=== PATIENT | male | born 2000 | race Caucasian/White ===

== ENCOUNTER 2025-05-06 20:42 | Emergency (ER) | payer BC, SELFPAY ==
[2025-05-06 20:50] VITALS: BP 123/80
[2025-05-06 21:30] VITALS: BP 111/65
[2025-05-06 21:32] VITALS: BMI 25.9
[2025-05-06 22:00] VITALS: BP 121/81
[2025-05-06 22:21] LABS: % Basophils 0.4 % (0-2); % Eosinophils 0.9 % (0-6); % Immature Granulocytes 0.3 % (0-0.5); % Lymphocytes 27.4 % (20.5-51.1); % Monocytes 6.4 % (1.7-9.3); % Neutrophils 64.6 % (42.2-75.2); Absolute Eosinophils 0.1 10^3/uL (0-0.7); Absolute Lymphocytes 1.9 10^3/uL (1.2-3.4); Absolute Monocytes 0.4 10^3/uL (0.1-0.6); Absolute Neutrophils 4.4 10^3/uL (1.4-6.5); Hematocrit 44.6 % (39.0-52.0); Hemoglobin 15.8 g/dL (13.0-18.0); Mean Corp Hgb Conc. 35.4 g/dL (33.0-37.0); Mean Corpuscular Hgb 31.1 pg (27.0-31.0); Mean Corpuscular Volume 87.8 fL (80.0-94.0); Mean Platelet Volume 10.3 fL (7.4-10.4); Nucleated Red Blood Cells % 0 % (-); Platelet Count 189 10^3/uL (130-400); Red Blood Cell Count 5.08 10^6/uL (4.70-6.10); Red Cell Dist. Width 11.1 % (11.5-14.5); White Blood Cell Count 6.9 10^3/uL (4.8-10.8)
[2025-05-06 22:35] LABS: ALT (SGPT) 28 U/L (0-50); AST (SGOT) 20 U/L (17-59); Albumin 4.8 g/dl (3.5-5.0); Alkaline Phosphatase 63 U/L (38-126); Blood Urea Nitrogen 17 mg/dl (9-20); Calcium 9.4 mg/dl (8.4-10.2); Carbon Dioxide 26 mmol/L (22-30); Chloride 107 mmol/L (98-107); Estimated Creatinine Clearance > 125 ml/min; Glucose 122 mg/dl (70-99); Potassium 4.3 mmol/L (3.5-5.1); Sodium 143 mmol/L (135-145); Total Bilirubin 0.7 mg/dl (0.2-1.3); Total Protein 7.2 g/dl (6.3-8.2); eGFR > 60.00
[2025-05-06 22:42] LABS: Troponin I < 0.012 ng/ml
--- NOTE | 2025-05-06 22:54 | ED.GENMED ---
History of Present Illness
General
Chief Complaint: Chest Pain
Source: patient
Exam Limitations: none
Time Seen by Provider: 05/06/25 21:46
Nursing documentation reviewed up to this point in time: agreed with
History of Present Illness
History of Present Illness:
25-year-old male with no reported chronic medical issues presents to the ER for evaluation of chest tightness. Patient reports that for the past 2 or 3 days he has noticed tightness in the left side of his chest. He describes 'like a sore muscle'
that feels better when he massages it. He denies any associated shortness of breath, palpitations, dizziness, nausea/vomiting. No swelling or pain in the legs. No exertional component to his symptoms. He does note that he recently started doing
some push-ups shortly prior to onset. He initially went to urgent care and there he was told that his EKG was abnormal and he should be evaluated in the ER. He also had a chest x-ray that was reportedly unremarkable.
Review of Systems
Review of Systems
All Other Systems: ROS reviewed and negative except as documented in HPI and ROS
Constitutional: Denies fever
EENT: Denies sore throat or runny nose
Respiratory: Denies cough or trouble breathing
Cardiac: Reports chest pain; Denies palpitations
ABD/GI: Denies abdominal pain, nausea or vomiting
: Denies flank pain
Musculoskeletal: Denies edema, neck pain or back pain
Neurological: Denies dizzy or headache
Phy Exam
Physical Exam
Physical Exam:
General: Awake, alert, oriented x3; no acute distress
Head: Normocephalic, atraumatic
Eyes: Conjunctiva normal, sclera anicteric
Throat: Airway intact, handling secretions
Neck: Trachea midline, no JVD
Lungs: Clear to auscultation bilaterally, no wheezing, rales, rhonchi
Heart: Regular rate and rhythm, no murmurs, gallops, or rubs; mild tenderness along the left pectoral muscle but no swelling or skin changes
Abd: Soft, non distended, nontender
Neuro: No gross deficits
Extremities: No edema in extremities, equal pulses in all extremities
Scores
Heart Failure Risk
Heart Failure Risk Score: Not Applicable
Heart Score for Chest Pain Patients
STEMI patient?: No
History: Slightly or Non-Suspicious
ECG: Normal
Age: </= 45 years
Risk Factors: No Risk Factors
Troponin: </= Normal Limit
Heart Score for Chest Pain Patients: 0
Heart Score Risk: 2.5% MACE over next 6 weeks
PERC Rule Criteria
Age <50 years: Yes
HR <100 bpm: Yes
Room air oxygen sat >94%: Yes
History of DVT or PE: No
Recent trauma or surgery: No
Hemoptysis: No
Exogenous estrogen: No
Clinical signs suggestive of DVT: No
: No
Considered low risk for PE: Yes
PERC Score: 0
PE can be excluded by PERC: Yes
Withdrawal Assessment of Alcohol
Withdrawal Assessment Completed?: Not applicable
Course
Orders/Labs/Results
Orders:
Orders
05/06/25 20:45
EKG [Electrocardiogram (*1)] Urgent
Reason for Study: Chest Pain
EKG- Treatment ONCE
05/06/25 22:00
Comprehensive Metabolic Panel Urgent
Troponin I Urgent
05/06/25 22:11
Complete Blood Count/With Diff Urgent
Abnormal Lab Results
05/06/25 05/06/25
22:00 22:11
MCH 31.1 H pg
(27.0-31.0)
RDW 11.1 L %
(11.5-14.5)
Glucose 122 H mg/dl
(70-99)
05/06/25 22:11
05/06/25 22:00
Vital Signs
Initial and Last Documented VS:
Initial Vital Signs
Temp Pulse Resp BP Pulse Ox
37.0 C 91 15 123/80 100
05/06/25 20:50 05/06/25 20:50 05/06/25 20:50 05/06/25 20:50 05/06/25 20:50
Last Documented Vital Signs
Temp Pulse Resp BP Pulse Ox
37.0 C 78 9 121/81 97
05/06/25 20:50 05/06/25 22:45 05/06/25 22:45 05/06/25 22:00 05/06/25 22:45
MDM/Problems Addressed
Differential Diagnosis Includes:
Costochondritis, pectoral strain, ACS/angina considered very unlikely, very low clinical suspicion for PE and patient is PERC negative�no indication for further testing for this diagnosis
MDM/Problems Addressed:
25-year-old male presents for evaluation of chest wall soreness that improves with massage that started after doing some push-ups recently. He went to urgent care and they did an EKG that was reportedly abnormal and he was told to go to the ER for
evaluation. His EKG here shows some nonspecific flattening of the T waves but no ST changes. His symptoms seem quite clearly to be chest wall pain likely from pectoral strain. Nevertheless given abnormal EKG will check cardiac enzymes in an
abundance of caution. Patient PERC negative no indication for testing for PE�very low clinical suspicion for this diagnosis.
Labs reviewed and are unremarkable, troponin is undetectable. Reviewed chest x-ray from urgent care which showed no acute disease on my independent review. Stable for discharge advised to follow-up with primary care physician as an outpatient.
Advised to rest and trial NSAIDs as I suspect etiology of his discomfort is chest wall strain. Spoke about return precautions and all questions answered.
*Critical Care Note
Total Time (30-74mins, 75-104mins- exclusive of procedures): Not Applicable
ED Attending Note
-
Portions of this chart may have been created with voice recognition software.� Occasional wrong word or��sound alike� substitutions may have occurred due to the inherent limitations of voice recognition software.
Discharge Plan
Departure
Patient Disposition: Home (Routine Discharge)
Date of Disposition: 05/06/25
Time of Disposition: 22:50
Patient with high blood pressure during this ER visit?: No
Discharge Problem:
Chest pain, Abnormal EKG
Instructions: Chest Pain PCP Follow Up
Referrals:
Lawrence Mae MD [Family Provider, [facility]] - Follow up in 1 week
Activity Restrictions/Additional Instructions:
Thank you for visiting the Emergency Department at [facility].
1. Please schedule a follow up appointment as directed. Call first thing tomorrow morning to make an appointment.
2. If indicated, please take your medications as instructed and indicated on discharge paperwork.
3. If any of your symptoms do not improve, or persist, or become more severe within 6-12 hours, please return to the emergency department for further care.
4. Please return to the emergency department if you develop a headache, neck pain/stiffness, fever greater than 100.4F, chest pain, shortness of breath, persistent nausea, vomiting, slurred speech, difficulty walking, numbness/tingling, weakness,
signs of infection or any other symptoms that are worrisome to you.
Please call [phone] if you have any questions.
Interventions
Interventions:
*Risk Screen - Suicide Last Done: 05/06/25 20:50
*General Assessment Last Done: 05/06/25 20:50
*Neglect/Abuse Screening Last Done: 05/06/25 20:50
*ED- Fall Risk Assessment Last Done: 05/06/25 21:32
*ED COVID-19 Vaccine History Last Done: 05/06/25 21:32
*Nursing Disposition Last Done: 05/06/25 23:14
ED- Cardiac Assessment Last Done: 05/06/25 21:32
Discharge Date and Time
Discharge Date/Time: 05/06/25 23:16
Print Language: ARABIC
== END 2025-05-06 23:16 | disposition home or self-care (01) ==
LOC: EMR 20:42
PROVIDERS: EMERGENCY PHYSICIAN Emergency Medicine; FAMILY PHYSICIAN Family Medicine
DX: R07.89 Other chest pain (principal); R94.31 Abnormal electrocardiogram [ECG] [EKG]
CPT/HCPCS: 99284; 80053; 84484; 85025; 93005

== ENCOUNTER → 2025-10-03 14:08 | Outpatient (REF) | payer BC, SELFPAY | LOC: HWRAD 14:08 | PROVIDERS: ATTENDING PHYSICIAN Otolaryngology; FAMILY PHYSICIAN Family Medicine | DX: J32.4 Chronic pansinusitis (principal) | CPT/HCPCS: 70486 ==